=== PATIENT | female | born 1945 | race American Indian/Alaskan Native ===

== ENCOUNTER 2016-11-13 13:50 | Emergency (ER) | payer MEDICARE ==
[2016-11-13 14:41] VITALS: BP 140/94
[2016-11-13] MEDS ORDERED: ASPIRIN PO ONE (14:59)
--- NOTE | 2016-11-13 15:02 | Emergency Department Report ---
Entered by AYDIN SNELL, acting as scribe for PATRICK ACEVEDO NP. Chief Complaint: Chest Pain Stated Complaint: RT SIDE PAIN Time Seen by Provider: 11/13/16 14:54 - HPI History of Present Illness: Pt c/o right hip pain. Pt also c/o right sided chest pain that does not radiate. Pt is currently on 2L O2. Denies dizziness PCP is Dr. Ramírez and surgical services director is Dr. Lea PMHx of HTN, CHF, gout, and arthritis. Notes compliancy to medications. - ROS Review of Systems: All system are negative unless stated in HPI above. - Exam Vital Signs: Vital Signs 11/13/16 14:31 Pulse Rate 92 H Respiratory 18 Rate Blood Pressure 140/94 O2 Sat by Pulse 93 Oximetry Physical Exam: General: 70 year old female in no acute distress and nontoxic in appearance Respiratory exam: normal lung sounds bilaterally. No respiratory distress. No rhonchi, wheezes, or rales Cardiovascular Exam: Regular rate, normal rhythm. No systolic murmur, diastolic murmur, rubs, or gallop Musculoskeletal: +2 edema to bilateral extremities MSE screening note: Focused history and physical exam performed. Due to findings the following was ordered: See above ED Medical Decision Making - EKG Data EKG shows normal: sinus rhythm Rate: normal - Medical Decision Making Patient screened by provider in triage area. EKG shows a normal sinus rhythm with a nonspecific ST and T wave abnormality. Labs will be sent in for patient. Patient to be seen by MD on main ED side. ED Disposition for MSE Condition: Stable This documentation as recorded by the scribe,AYDIN SNELL,accurately reflects the service I personally performed and the decisions made by , PATRICK ACEVEDO NP.
[2016-11-13 15:37] LABS: Basophils % (Auto) 0.2 % (0.0-1.8); Eosinophils % (Auto) 1.3 % (0.0-4.3); Hematocrit 39.9 % (30.3-42.9); Hemoglobin 12.8 gm/dl (10.1-14.3); Mean Corpuscular HGB Conc 32 % (30-34); Mean Corpuscular Hemoglobin 29 pg (28-32); Mean Corpuscular Volume 90 fl (79-97); Platelet Count 213 K/mm3 (140-440); Red Blood Count 4.42 M/mm3 (3.65-5.03); Red Cell Distribution Width 13.4 % (13.2-15.2); White Blood Count 11.4 K/mm3 (4.5-11.0)
[2016-11-13 15:43] LABS: Alanine Aminotransferase 8 units/L (7-56); Albumin 3.8 g/dL (3.9-5); Albumin/Globulin Ratio 0.9 %; Alkaline Phosphatase 82 units/L (35-129); Anion Gap 22 mmol/L; Blood Urea Nitrogen 27 mg/dL (7-17); Calcium 9.5 mg/dL (8.4-10.2); Carbon Dioxide 25 mmol/L (22-30); Chloride 100.7 mmol/L (98-107); Glucose 112 mg/dL (65-100); Potassium 3.6 mmol/L (3.6-5.0); Sodium 144 mmol/L (137-145)
[2016-11-13 15:47] LABS: INR 1.11 (0.87-1.13)
[2016-11-13 15:48] LABS: Partial Thromboplastin Time 26.4 Sec. (24.2-36.6)
--- NOTE | 2016-11-13 16:37 | XRay Report ---
CHEST 2 VIEWS INDICATION: Chest pain. COMPARISON: Report of 06/13/2011 CXR; images not retrievable at this time. FINDINGS: PA and lateral chest radiographs demonstrate poor inspiration with exaggerated cardiomediastinal silhouette and crowded lung markings toward the bases. Intact bones. CONCLUSION: Hypoinflation, as described. Thank you for the opportunity to participate in this patient's care.
--- NOTE | 2016-11-17 01:10 | ED Elopement Review ---
ED Pt Elopement review - Results review Lab results: Laboratory Tests 11/13/16 11/13/16 11/13/16 15:09 15:09 15:09 WBC 11.4 H RBC 4.42 Hgb 12.8 Hct 39.9 MCV 90 MCH 29 MCHC 32 RDW 13.4 Plt Count 213 Lymph % (Auto) 19.4 [place] % (Auto) 8.1 H Eos % (Auto) 1.3 Baso % (Auto) 0.2 Lymph # 2.2 [place] # 0.9 H Eos # 0.1 Baso # 0.0 Seg Neutrophils % 71.0 H Seg Neutrophils # 8.1 H PT 14.2 INR 1.11 APTT 26.4 Sodium 144 Potassium 3.6 Chloride 100.7 Carbon Dioxide 25 Anion Gap 22 BUN 27 H Creatinine 1.5 H Estimated GFR 42 BUN/Creatinine Ratio 18.00 Glucose 112 H Calcium 9.5 Total Bilirubin 0.40 AST 15 ALT 8 Alkaline Phosphatase 82 Troponin T < 0.010 NT-Pro-B Natriuret Pep Total Protein 8.0 Albumin 3.8 L Albumin/Globulin Ratio 0.9 11/13/16 15:09 WBC RBC Hgb Hct MCV MCH MCHC RDW Plt Count Lymph % (Auto) [place] % (Auto) Eos % (Auto) Baso % (Auto) Lymph # [place] # Eos # Baso # Seg Neutrophils % Seg Neutrophils # PT INR APTT Sodium Potassium Chloride Carbon Dioxide Anion Gap BUN Creatinine Estimated GFR BUN/Creatinine Ratio Glucose Calcium Total Bilirubin AST ALT Alkaline Phosphatase Troponin T NT-Pro-B Natriuret Pep 35.83 Total Protein Albumin Albumin/Globulin Ratio - Call Back decision Pt Call Back Decision: Call pt to return to ED [facility] (chest pain will likely require inpatient evaluation)
== END 2016-11-13 22:30 | disposition left against medical advice (07) ==
LOC: ED 13:50
DX: R07.9 Chest pain, unspecified (principal); Z53.21 Procedure and treatment not carried out due to patient leaving prior to being seen by health care provider
CPT/HCPCS: 36415; 71020; 80053; 83880; 84484; 85025; 85610; 85730; 93005; 93010